=== PATIENT | male | born 1975 | race American Indian/Alaskan Native ===

== ENCOUNTER 2017-08-17 10:34 | Outpatient (CLI) | payer OTHER ==
--- NOTE | 2017-08-17 10:57 | XRay Report ---
XRAY RIGHT SHOULDER THREE VIEWS: 08/17/17 10:34:00 CLINICAL: Right shoulder pain. FINDINGS: Normal glenohumeral alignment. Normal AC joint. No fracture. A very small inferior glenoid osteophyte. Normal soft tissues. IMPRESSION: Mild glenohumeral joint arthritis and otherwise normal.
== END 2017-08-17 10:35 | disposition home or self-care (01) ==
LOC: SPVIMAG 10:34
PROVIDERS: ATTEND Orthopaedic Surgery
DX: M19.011 Primary osteoarthritis, right shoulder (principal); M25.711 Osteophyte, right shoulder